=== PATIENT | female | born 1960 | race Caucasian/White ===

== ENCOUNTER 2019-12-30 08:02 | Day surgery (SDC) | payer OTHER ==
[~2019-12-30] VITALS: Ht 165.1 cm; Wt 85.0 kg
[2019-12-30] MEDS ORDERED: ATOR80 PO (08:22)
[2019-12-30] MEDS ORDERED: PANT40 PO (08:23)
[2019-12-30] MEDS ORDERED: ESCI20 (08:23)
[2019-12-30] MEDS ORDERED: Dyazide 37.5-21 EACH PO (08:24)
[2019-12-30] MEDS ORDERED: POTA10T PO (08:25)
[2019-12-30] MEDS ORDERED: LEVO-T88 MC1 (08:25)
[2019-12-30] MEDS ORDERED: AMLO5 PO (08:26)
--- NOTE | 2019-12-30 08:33 | NUR ---
Ambulatory in Day Surgery History, Chart, Medications and Allergies reviewed before start of procedure.Lungs clear T/O to Auscultation. Patient confirms NPO status and agrees with scheduled surgery. Patient States Post-Procedure ride home has been arranged.
--- NOTE | 2019-12-30 09:07 | NUR ---
12/30/19 0907 Hermelinda Bro History, Chart, Medications and Allergies reviewed before start of procedure. PATIENT CONFIRMS NPO STATUS AND AGREES WITH SCHEDULED PROCEDURE. MONITOR INTACT WITH CONTINUOUS PULSE OXIMETRY AND INTERMITTENT BP. O2 VIA N/C INTACT THROUGHOUT SEDATION/PROCEDURE. 3-LEAD EKG REVIEWED WITH PHYSICIAN PRIOR TO START OF PROCEDURE. PATIENT DETERMINED TO BE ASA APPROPRIATE FOR PROPOFOL SEDATION PRIOR TO START OF PROCEDURE BY DR. LAZAR. Bite Block Placed. HURRICAINE SPRAY TO OROPHARYX.
== END 2019-12-30 09:59 | disposition home or self-care (01) ==
LOC: ORSCMMR 08:02 → ORD 09:00 → ORSCMMR 09:59
PROVIDERS: Internal Medicine Gastroenterology
PROC: 0DB58ZX Excision of Esophagus, Via Natural or Artificial Opening Endoscopic, Diagnostic (ICD-10-PCS; principal; 2019-12-30 09:00)
PROC: 0DB48ZX Excision of Esophagogastric Junction, Via Natural or Artificial Opening Endoscopic, Diagnostic (ICD-10-PCS; principal; 2019-12-30 09:00)
DX: K22.70 Barrett's esophagus without dysplasia (principal); Z80.0 Family history of malignant neoplasm of digestive organs; K31.7 Polyp of stomach and duodenum; E78.00 Pure hypercholesterolemia, unspecified; F32.9 Major depressive disorder, single episode, unspecified; E03.9 Hypothyroidism, unspecified; I10 Essential (primary) hypertension; K21.9 Gastro-esophageal reflux disease without esophagitis; Z79.899 Other long term (current) drug therapy
CPT/HCPCS: 88305; 88342; J2704; J7120